=== PATIENT | female | born 1990 | race Two or more races ===

== ENCOUNTER 2022-09-13 09:22 | Emergency (ER) | payer OTHER ==
[~2022-09-13] VITALS: Ht 149.9 cm; Wt 97.5 kg
[2022-09-13] MEDS ORDERED: PRENA1 TRUE CO1 EACH PO (09:59)
== END 2022-09-13 18:00 | disposition home or self-care (01) ==
LOC: ER 09:22
DX: O20.8 Other hemorrhage in early pregnancy (principal); Z3A.08 8 weeks gestation of pregnancy

== ENCOUNTER 2022-10-24 14:12 | Outpatient (CLI) | payer OTHER ==
[~2022-10-24 14:12] MED LIST: PRENA1 TRUE CO1 EACH PO
== END 2022-10-24 16:55 | disposition home or self-care (01) ==
LOC: PRENATAL 14:12
PROVIDERS: ATTEND Obstetrics & Gynecology Maternal & Fetal Medicine
DX: O36.80X0 Pregnancy with inconclusive fetal viability, not applicable or unspecified (principal); O98.919 Unspecified maternal infectious and parasitic disease complicating pregnancy, unspecified trimester; Z3A.13 13 weeks gestation of pregnancy

== ENCOUNTER 2022-12-12 08:02 | Outpatient (CLI) | payer OTHER | END 2022-12-12 09:15 | disposition home or self-care (01) | LOC: PRENATAL 08:02 | PROVIDERS: ATTEND Obstetrics & Gynecology Maternal & Fetal Medicine | DX: O35.9XX0 Maternal care for (suspected) fetal abnormality and damage, unspecified, not applicable or unspecified (principal); O35.3XX0 Maternal care for (suspected) damage to fetus from viral disease in mother, not applicable or unspecified; Z3A.20 20 weeks gestation of pregnancy ==

== ENCOUNTER 2023-03-06 13:45 | Outpatient (CLI) | payer OTHER | END 2023-03-06 15:53 | disposition home or self-care (01) | LOC: PRENATAL 13:45 | PROVIDERS: ATTEND Obstetrics & Gynecology Maternal & Fetal Medicine | DX: O26.849 Uterine size-date discrepancy, unspecified trimester (principal); O36.8199 Decreased fetal movements, unspecified trimester, other fetus; O98.919 Unspecified maternal infectious and parasitic disease complicating pregnancy, unspecified trimester; Z3A.32 32 weeks gestation of pregnancy ==

== ENCOUNTER 2023-04-14 11:37 | Inpatient (IN) | payer OTHER ==
[~2023-04-14] VITALS: Ht 149.9 cm; Wt 2.7 kg
[2023-04-14 12:29] LABS: HEMATOCRIT 36.9 % (36.0-45.00); HEMOGLOBIN 11.7 g/dL (12.0-15.00); MEAN CELL VOLUME 86.6 fL (80.00-100.00); MEAN CORPUSCULAR HEMOGLOBIN 27.6 pg (27.00-32.0); MEAN CORPUSCULAR HGB CONC 31.8 g/dl (32.0-36.0); PLATELET COUNT 257 K/uL (150-450); RED BLOOD COUNT 4.26 M/uL (4.00-6.00); RED CELL DISTRIBUTION WIDTH 14.3 % (11.5-14.5)
[2023-04-14 12:51] LABS: INR < 0.93; PARTIAL THROMBOPLASTIN TIME 29.2 SECONDS (22.0-34.0); PROTHROMBIN TIME 9.7 SECONDS (9.0-11.5)
[2023-04-14 12:54] LABS: PH,URINE 5.5 (5.0-8.0); URINE APPEARANCE Clear; URINE BILIRRUBIN Negative (NEGATIVE); URINE BLOOD Trace; URINE COLOR Dark Yellow; URINE GLUCOSE Negative (NEGATIVE); URINE LEUKOCYTE Small; URINE NITRATE Negative; URINE PROTEIN Negative (NEGATIVE)
[2023-04-14 12:56] LABS: URINE BACTERIA 1588.7 uL (0.0-1933); URINE EPITHELIAL CELLS 26.4 uL (0.0-38.8); URINE WBC 30.7 uL (0.0-23.2)
[2023-04-14 13:01] LABS: ALBUMIN 2.8 gm/dL (3.4-5.0); BILIRUBIN TOTAL 0.63 mg/dL (0.3-1.2); CREATININE SERUM 0.54 mg/dL (0.55-1.02); GFR 132.56; GLOBULINA 3.4 G/DL (2.4-3.5); POTASSIUM 3.98 mEq/L (3.5-5.1); TOTAL PROTEIN 6.2 gm/dL (6.4-8.2)
[2023-04-14 13:07] LABS: URINE RBC 0.7 uL (0.0-20.8)
[2023-04-27 19:45] LABS: PH,URINE 5.5 (5.0-8.0); URINE APPEARANCE Clear; URINE BILIRRUBIN Negative (NEGATIVE); URINE BLOOD Negative; URINE COLOR Yellow; URINE GLUCOSE Negative (NEGATIVE); URINE LEUKOCYTE Small; URINE NITRATE Negative; URINE PROTEIN Negative (NEGATIVE)
[2023-04-27 19:46] LABS: URINE BACTERIA 4678.1 uL (0.0-1933); URINE EPITHELIAL CELLS 45.4 uL (0.0-38.8); URINE WBC 82.8 uL (0.0-23.2)
[2023-04-27 19:47] LABS: HEMATOCRIT 35.9 % (36.0-45.00); HEMOGLOBIN 11.8 g/dL (12.0-15.00); MEAN CELL VOLUME 85.8 fL (80.00-100.00); MEAN CORPUSCULAR HEMOGLOBIN 28.1 pg (27.00-32.0); MEAN CORPUSCULAR HGB CONC 32.8 g/dl (32.0-36.0); PLATELET COUNT 271 K/uL (150-450); RED BLOOD COUNT 4.18 M/uL (4.00-6.00); RED CELL DISTRIBUTION WIDTH 14.5 % (11.5-14.5)
[2023-04-27 20:08] LABS: URINE RBC 0.8 uL (0.0-20.8)
[2023-04-27 20:21] LABS: FIBRINOGEN 462 mg/dL (187.0-446.0); INR < 0.93; PARTIAL THROMBOPLASTIN TIME 28.8 SECONDS (22.0-34.0); PROTHROMBIN TIME 9.6 SECONDS (9.0-11.5)
[2023-04-27 21:08] LABS: ALBUMIN 2.8 gm/dL (3.4-5.0); BILIRUBIN TOTAL 0.48 mg/dL (0.3-1.2); CALCIUM 8.8 mg/dL (8.5-10.1); CREATININE SERUM 0.7 mg/dL (0.55-1.02); GFR 98.25; GLOBULINA 3.5 G/DL (2.4-3.5); POTASSIUM 4.46 mEq/L (3.5-5.1); TOTAL PROTEIN 6.3 gm/dL (6.4-8.2); URIC ACID 4.4 mg/dL (2.5-7.5)
[2023-04-29 06:25] LABS: HEMOGLOBIN 10.4 g/dL (12.0-15.00); MEAN CELL VOLUME 85.8 fL (80.00-100.00); MEAN CORPUSCULAR HEMOGLOBIN 28.8 pg (27.00-32.0); MEAN CORPUSCULAR HGB CONC 33.5 g/dl (32.0-36.0); PLATELET COUNT 232 K/uL (150-450); RED BLOOD COUNT 3.62 M/uL (4.00-6.00); RED CELL DISTRIBUTION WIDTH 14.2 % (11.5-14.5)
[2023-05-01] MEDS ORDERED: COLACE100 MG PO (06:57)
[2023-05-01] MEDS ORDERED: IBU800 MG PO (06:57)
[2023-05-01] MEDS ORDERED: SIMETHICONE125 M1 PO (06:57)
== END 2023-05-01 13:31 | disposition home or self-care (01) | DRG 788 ==
LOC: LDR 04-27 17:16 → OB/GYN 04-28 22:44
PROVIDERS: Obstetrics & Gynecology; Specialist; ADMIT Student in an Organized Health Care Education/Training Program; ATTEND Student in an Organized Health Care Education/Training Program
PROC: 3E033VJ Introduction of Other Hormone into Peripheral Vein, Percutaneous Approach (ICD-10-PCS; 2023-04-27)
PROC: 4A1HXCZ Monitoring of Products of Conception, Cardiac Rate, External Approach (ICD-10-PCS; 2023-04-27)
PROC: 3E0P7VZ Introduction of Hormone into Female Reproductive, Via Natural or Artificial Opening (ICD-10-PCS; 2023-04-28)
PROC: 10D00Z1 Extraction of Products of Conception, Low, Open Approach (ICD-10-PCS; principal; 2023-04-28 19:00)
DX: O62.1 Secondary uterine inertia (principal); Z3A.39 39 weeks gestation of pregnancy; Z37.0 Single live birth; Z20.822 Contact with and (suspected) exposure to COVID-19